=== PATIENT | male | born 1975 | race Caucasian/White ===

== ENCOUNTER 2016-10-13 17:29 | Emergency (ER) | payer OTHER ==
[2016-10-14] MEDS ORDERED: [UNRECOGNIZED DRUG - CODE] SC (21:17)
[2016-10-14] MEDS ORDERED: SENNA8.6 MG PO (21:24)
[2016-10-14] MEDS ORDERED: TYLENOL 325MG325 MG PO ×2 (21:26→21:27)
[2016-10-14] MEDS ORDERED: LASIX40 MG PO (21:28)
[2016-10-14] MEDS ORDERED: FERROUS SULFAT325 M2 PO (21:28)
[2016-10-14] MEDS ORDERED: TRAMADOL HCL50 MG PO (21:29)
[2016-10-14] MEDS ORDERED: PROTONIX 40 MG40 M1 PO (21:29)
[2016-10-14] MEDS ORDERED: HUMULIN R100 UNIT/1 INJ (21:31)
== END 2016-10-13 20:20 | disposition left against medical advice (07) ==
LOC: ER1 17:29
DX: Z53.21 Procedure and treatment not carried out due to patient leaving prior to being seen by health care provider (principal)

== ENCOUNTER 2016-10-14 12:40 | Inpatient (IN) | payer OTHER ==
[~2016-10-14] VITALS: Ht 177.8 cm; Wt 82.4 kg
[2016-10-14 13:54] LABS: HEMOGLOBIN 7.5 gm/dl (14.0-17.5); RED BLOOD COUNT 3.2 M/UL (4.20-5.50); WHITE BLOOD COUNT 15.5 K/UL (4.5-11.0)
[2016-10-14 14:06] LABS: BUN/CREATININE RATIO 36 (0-10)
[2016-10-14] MEDS ORDERED: [UNRECOGNIZED DRUG - CODE] SC (21:17)
[2016-10-14] MEDS ORDERED: SENNA8.6 MG PO (21:24)
[2016-10-14] MEDS ORDERED: TYLENOL 325MG325 MG PO ×2 (21:26→21:27)
[2016-10-14] MEDS ORDERED: FERROUS SULFAT325 M2 PO (21:28)
[2016-10-14] MEDS ORDERED: LASIX40 MG PO (21:28)
[2016-10-14] MEDS ORDERED: TRAMADOL HCL50 MG PO (21:29)
[2016-10-14] MEDS ORDERED: PROTONIX 40 MG40 M1 PO (21:29)
[2016-10-14] MEDS ORDERED: HUMULIN R100 UNIT/1 INJ (21:31)
[2016-10-15 03:44] LABS: RED BLOOD COUNT 2.65 M/UL (4.20-5.50); WHITE BLOOD COUNT 11.5 K/UL (4.5-11.0)
[2016-10-15 03:45] LABS: HEMOGLOBIN 6.1 gm/dl (14.0-17.5)
[2016-10-15 03:48] LABS: BUN/CREATININE RATIO 30 (0-10)
[2016-10-15 16:19] LABS: HEMOGLOBIN 7.5 gm/dl (14.0-17.5)
[2016-10-15 22:04] LABS: HEMOGLOBIN 7.5 gm/dl (14.0-17.5)
[2016-10-16 05:07] LABS: RED BLOOD COUNT 3.28 M/UL (4.20-5.50)
[2016-10-16 05:33] LABS: BUN/CREATININE RATIO 30 (0-10)
[2016-10-17 05:02] LABS: HEMOGLOBIN 7.6 gm/dl (14.0-17.5); RED BLOOD COUNT 3.16 M/UL (4.20-5.50); WHITE BLOOD COUNT 10.3 K/UL (4.5-11.0)
[2016-10-17 05:22] LABS: BUN/CREATININE RATIO 18 (0-10)
[2016-10-18 03:54] LABS: HEMOGLOBIN 7.6 gm/dl (14.0-17.5); RED BLOOD COUNT 3.16 M/UL (4.20-5.50); WHITE BLOOD COUNT 12.2 K/UL (4.5-11.0)
[2016-10-19 03:49] LABS: HEMOGLOBIN 7.8 gm/dl (14.0-17.5); RED BLOOD COUNT 3.19 M/UL (4.20-5.50); WHITE BLOOD COUNT 13.3 K/UL (4.5-11.0)
[2016-10-19 04:33] LABS: BUN/CREATININE RATIO 23 (0-10)
[2016-10-20 05:14] LABS: HEMOGLOBIN 7.6 gm/dl (14.0-17.5)
[2016-10-20 05:32] LABS: BUN/CREATININE RATIO 30 (0-10)
--- NOTE | 2016-10-20 11:47 | NUR ---
PERCOCET SCHEDULED FOR 1200. PT REQUESTED DILAUDID WITH PERCOCET. EXPLAINED TO PT DANGERS OF TAKING BOTH AT SAME TIME AND INFORMED HIM THAT MEDS WOULD NOT BE GIVEN TOGETHER. PT REFUSED PERCOCET AND DILAUDID WAS GIVEN PER HIS REQUEST.
[2016-10-21 05:51] LABS: BUN/CREATININE RATIO 20 (0-10)
--- NOTE | 2016-10-21 18:31 | NUR ---
HOSPITALIST (DR. FARMER) REQUESTED THAT ORTHO BE CONSULTED FOR PATIENT. ORIGINALLY, DR. HEREDIA WAS CONSULTED, BUT ON THIS PARTICULAR DAY, DR HEREDIA WAS NOT [employer] AND IS OUT OF TOWN. DR. MOLINA WAS CONTACTED SINCE HE WAS [employer]. HE STATED TO CONTACT DR. HEREDIA. DR HEREDIA WAS THEN CONTACTED AND STATED THAT HE WOULD CONTACT DR MOLINA TO DISCUSS THE CONSULT.
[2016-10-22 05:38] LABS: BUN/CREATININE RATIO 33 (0-10)
[2016-10-23 06:04] LABS: BUN/CREATININE RATIO 28 (0-10)
[2016-10-24 05:21] LABS: BUN/CREATININE RATIO 26 (0-10)
[2016-10-25 05:56] LABS: BUN/CREATININE RATIO 24 (0-10)
[2016-10-26 05:10] LABS: RED BLOOD COUNT 2.76 M/UL (4.20-5.50); WHITE BLOOD COUNT 10.4 K/UL (4.5-11.0)
[2016-10-26 05:31] LABS: BUN/CREATININE RATIO 28 (0-10)
[2016-10-26 05:44] LABS: HEMOGLOBIN 6.8 gm/dl (14.0-17.5)
[2016-10-26 12:52] LABS: HEMOGLOBIN 7.5 gm/dl (14.0-17.5)
[2016-10-27 06:30] LABS: WHITE BLOOD COUNT 8.7 K/UL (4.5-11.0)
[2016-10-27 06:32] LABS: RED BLOOD COUNT 3.19 M/UL (4.20-5.50)
[2016-10-27 06:56] LABS: BUN/CREATININE RATIO 28 (0-10)
[2016-10-28 04:54] LABS: HEMOGLOBIN 7.8 gm/dl (14.0-17.5); RED BLOOD COUNT 3.12 M/UL (4.20-5.50); WHITE BLOOD COUNT 7.8 K/UL (4.5-11.0)
[2016-10-28 05:25] LABS: BUN/CREATININE RATIO 28 (0-10)
[2016-10-28 15:06] LABS: RED BLOOD COUNT 2.15 M/UL (4.20-5.50); WHITE BLOOD COUNT 12.7 K/UL (4.5-11.0)
[2016-10-28 15:07] LABS: HEMOGLOBIN 5.3 gm/dl (14.0-17.5)
--- NOTE | 2016-10-28 17:16 | NUR ---
PT ARRIVED TO 2120 POST OP AT 1610, NO ACUTE DISTRESS NOTED. PT C/O MODERATE PAIN. DR. KIDD AT BEDSIDE TO ASSESS PT. ORDERS NOTED. 2 UNITS PRBC'S ALREADY GIVEN, WILL TRANSFUSE 2 MORE FOR TOTAL OF 4 UNITS. VITALS STABLE. ORDERS NOTED.
[2016-10-28 22:55] LABS: HEMOGLOBIN 8.4 gm/dl (14.0-17.5)
[2016-10-29 03:41] LABS: HEMOGLOBIN 7.9 gm/dl (14.0-17.5); RED BLOOD COUNT 2.98 M/UL (4.20-5.50); WHITE BLOOD COUNT 9.2 K/UL (4.5-11.0)
[2016-10-29 04:00] LABS: BUN/CREATININE RATIO 28 (0-10)
[2016-10-29 14:32] LABS: HEMOGLOBIN 7.7 gm/dl (14.0-17.5)
[2016-10-30 03:49] LABS: HEMOGLOBIN 7.9 gm/dl (14.0-17.5); RED BLOOD COUNT 2.96 M/UL (4.20-5.50); WHITE BLOOD COUNT 8.4 K/UL (4.5-11.0)
[2016-10-30 04:09] LABS: BUN/CREATININE RATIO 22 (0-10)
[2016-10-31 04:49] LABS: HEMOGLOBIN 7.5 gm/dl (14.0-17.5); RED BLOOD COUNT 2.8 M/UL (4.20-5.50)
[2016-10-31 05:05] LABS: BUN/CREATININE RATIO 23 (0-10)
--- NOTE | 2016-10-31 18:53 | NUR ---
patient sat up in chair with assistance from physical theraphy. tolerated well
[2016-11-01 05:47] LABS: HEMOGLOBIN 7.9 gm/dl (14.0-17.5)
[2016-11-02 06:02] LABS: HEMOGLOBIN 8.1 gm/dl (14.0-17.5)
[2016-11-03] MEDS ORDERED: LORTAB 5-325 M1 EACH PO (13:38)
== END 2016-11-03 17:40 | disposition home health service (06) | DRG 853 ==
LOC: ER1 12:40 → MED SURG 4 18:08 → M/S 18:08 → ZEROF 18:08 → PROG CARE 18:08 → ER1 20:12 → PROG CARE 20:30 → MED SURG 4 10-19 15:40 → CCU 10-28 16:22 → PROG CARE 10-29 12:25 → M/S 10-30 11:28
PROVIDERS: Emergency Medicine; Hospitalist; Internal Medicine; Orthopaedic Surgery; ADMIT Internal Medicine
PROC: 0J9M0ZZ Drainage of Left Upper Leg Subcutaneous Tissue and Fascia, Open Approach (ICD-10-PCS; principal; 2016-10-31)
DX: A41.9 Sepsis, unspecified organism (principal); M72.6 Necrotizing fasciitis; D62 Acute posthemorrhagic anemia; E87.2 Acidosis; L02.416 Cutaneous abscess of left lower limb; E11.622 Type 2 diabetes mellitus with other skin ulcer; K70.30 Alcoholic cirrhosis of liver without ascites; K21.9 Gastro-esophageal reflux disease without esophagitis; Z87.19 Personal history of other diseases of the digestive system; Z98.890 Other specified postprocedural states; Z87.891 Personal history of nicotine dependence; F10.21 Alcohol dependence, in remission; R53.1 Weakness; Z79.4 Long term (current) use of insulin; Z79.899 Other long term (current) drug therapy; Z82.49 Family history of ischemic heart disease and other diseases of the circulatory system; Z83.3 Family history of diabetes mellitus
CPT/HCPCS: 10022; 36415; 36430; 70450; 71010; 73700; 73720; 76881; 80048; 80053; 80202; 82040; 82550; 82962; 83605; 83735; 84132; 84439; 84443; 85014; 85018; 85025; 85027; 85610; 85730; 86140; 86850; 86900; 86901; 86920; 87040; 87070; 87077; 87186; 87205; 93926; 93971; 94640; 94664; 96374; 96375; 97110; 97116; 97530; 99284; A9577; C9113; J2270; J2405; J2543; J3010; J3370; J7030; J7040; J7050; J7070; J7120; P9016; P9045; Q0163

== ENCOUNTER → 2016-12-13 | Outpatient (CLI) | payer OTHER ==
[~2016-12-13] MED LIST: FERROUS SULFAT325 M2 PO; HUMULIN R100 UNIT/1 INJ; LASIX40 MG PO; LORTAB 5-325 M1 EACH PO; PROTONIX 40 MG40 M1 PO; SENNA8.6 MG PO; TRAMADOL HCL50 MG PO; TYLENOL 325MG325 MG PO; [UNRECOGNIZED DRUG - CODE] SC
[2016-12-13 15:55] LABS: HEMOGLOBIN 9.7 gm/dl (14.0-17.5); RED BLOOD COUNT 4.05 M/UL (4.20-5.50); WHITE BLOOD COUNT 4.6 K/UL (4.5-11.0)
[2016-12-13 16:25] LABS: BUN/CREATININE RATIO 40 (0-10)
== END ==
LOC: OPSV 13:00
PROVIDERS: Internal Medicine Infectious Disease
DX: L02.416 Cutaneous abscess of left lower limb (principal)
CPT/HCPCS: 36415; 80053; 85025; 86140; G0463